=== PATIENT | male | born 1965 | race Hispanic/Latino ===

== ENCOUNTER 2017-04-18 06:30 | Day surgery (SDC) | payer OTHER ==
[2016-08-08 13:56] VITALS: BMI 27.1
[2017-04-18 07:05] VITALS: RESP 18
[2017-04-18] MEDS: Lactated Ringer's 1,000 ML IV ONE ×2 (07:11→09:30)
[2017-04-18] MEDS ORDERED: Propofol 10 mg/ml Inj (20 ML) ONE (07:15)
[2017-04-18] MEDS ORDERED: Rocuronium 10 mg/ml (5 ml) ONE (07:16)
[2017-04-18] MEDS ORDERED: Succinylcholine 200 mg/10 ml Inj IV ONE (07:16)
[2017-04-18] MEDS ORDERED: Lidocaine 4% (Laryng-O-Jet) Kit MM ONE (07:16)
[2017-04-18] MEDS ORDERED: Etomidate 20 mg/10ml Inj IV ONE (07:18)
[2017-04-18] MEDS ORDERED: Bacitracin Ointment 30 GM TUBE ONE (07:18)
[2017-04-18] MEDS ORDERED: Phenylephrine 10 mg/ml Inj ONE ×2 (07:18→07:21)
[2017-04-18] MEDS ORDERED: SENSORCAINE 0.5% W/EPINEPHRINE 50ML MDV IJ ONE (07:18)
[2017-04-18] MEDS ORDERED: Ropivacaine 0.5% 30ML IV ONE (07:25)
[2017-04-18] MEDS ORDERED: Dexamethasone 4 mg/1 ml ONE ×2 (07:28→08:39)
[2017-04-18] MEDS ORDERED: Lidocaine 4% MPF 5 ML IJ ONE (07:44)
[2017-04-18] MEDS ORDERED: Midazolam 2 MG/2 ML VIAL ONE (08:09)
[2017-04-18] MEDS: Bupivacaine-Epi 0.5%-1:200,000 PF Inj IJ ONE (08:30)
[2017-04-18] MEDS ORDERED: Desflurane Inhalation Anesthetic Liq (240 ml) ONE (08:30)
--- NOTE | 2017-04-18 10:03 | PCM.SURG1 ---
Surgeon's Initial Post Op Note - Surgeon's Notes Surgeon: Narayan Mcleod MD Clinical Nutritionist: Ramu Clayton PA-C Type of Anesthesia: General LMA Pre-Operative Diagnosis: Right shoulder rotator cuff tear Operative Findings: see op report Post-Operative Diagnosis: same as pre-op dx Operation Performed: Right shoulder revision arthroscopy, repair of rotator cuff tear Specimen/Specimens Removed: none Estimated Blood Loss: EBL {In ML}: 5 Date of Surgery/Procedure: 04/18/17 Time of Surgery/Procedure: 08:00
[2017-04-18] MEDS ORDERED: Oxycodone/Acetaminophen 5/325 mg Tab PO PRN (10:04)
[2017-04-18] MEDS ORDERED: HYDROmorphone 0.5 mg/0.5 ml ISec IVP PRN (10:23)
--- NOTE | 2017-04-18 10:29 | PCM.ANESB1 ---
Interscalene Block - Brachial Plexus Date of Procedure: 04/18/17 Anesthesiologist: Elizabeth Pre-Procedure Diagnosis: Right Rotator cuff tear Post-Procedure Diagnosis: Same Procedure Performed: Interscalene Block of Brachial Plexus Right - Procedure Interscalene Block of Brachial Plexus: This procedure was explained to the patient that it is for post-operative pain management. Consent was obtained after a thorough discussion with the patient regarding the benefits and possible complications of local anesthetic block of the Brachial Plexus at the Interscalene area. Prior to emergence, a time out was held with the circulating nurse to confirm the correct surgery and appropriate block. Under general anesthesia at conclusion of procedure at request of surgeon, the patient's head was gently rotated away from the __right_ ___operative shoulder and the anterior scalene groove was carefully palpated. The ultrasound transducer was then applied to the skin in the transverse plane and the brachial plexus was visualized lateral to the carotid artery and in between the anterior and middle scalene muscles. After identification,the anterior lateral portion of the neck was prepped with Chloraprep. At this point, a # 22 gauge Stimuplex 2 inches insulated needle was inserted into the interscalene groove and directed in a caudal and midline direction. The needle was inserted lateral to the ultrasound transducer in-plane towards the brachial plexus in a [id number] direction. Needle advancement was performed carefully under direct ultrasound visualization. Nerve stimulator was used and twitched of the affected extremity including the hand brachialis muscles, biceps and the deltoid was obtained at a current of __0.45___MA. After repeated negative aspiration,__2___cc of__2%____lidocaine w/ 1:200,000 epinepherine were injected and this was followed with ___8__cc of _ lidocaine w/ 1:200,000 epinepherine and 20 cc 0.5% ropivicaine. Under ultrasound guidance the local anesthetics were observed surrounding the roots of the brachial plexus. The patient had stable vital signs, was awoke in no apparent distress. The patient tolerated the interscalene block of the bracheal plexus well with stable vital signs and denied pain post procedure.
[2017-04-18 11:35] VITALS: BP 125/77; PULSE 92; TEMP 98.4; O2SAT 96
--- NOTE | 2017-04-18 22:28 | OP ---
PROCEDURE DATE: 04/18/2017 ATTENDING PHYSICIAN: Narayan Mcleod MD [facility] DIRECTOR: Ramu Clayton PA-C PREOPERATIVE DIAGNOSES: 1. Repeat retearing of rotator cuff. 2. Synovitis. POSTOPERATIVE DIAGNOSES: 1. Right shoulder extensive synovitis. 2. Posterior-superior and anterior labral tear. 3. Anterior capsular adhesions. 4. Full-thickness rotator cuff tear. 5. Bursitis. 6. Impingement. PROCEDURE: 1. Right shoulder arthroscopy, extensive debridement. 2. Revision, right shoulder double rotator cuff repair. 3. Subacromial decompression with acromioplasty. 4. Anterior capsular lysis of adhesions with manipulation. 5. Twenty-two modifier for pervious surgery. TYPE OF ANESTHESIA: General and interscalene block. ESTIMATED BLOOD LOSS: 10 mL. SPECIMENS: None. COMPLICATIONS: None. INDICATIONS: After failing a course of nonoperative therapy, the patient elected to undergo the above procedures. In the office the risks and possible complications of the shoulder arthroscopy were discussed in detail with the patient. These risks include, but are not limited to, continued pain, lack of motion, infection, vascular injury, and nerve injury including axillary nerve dysfunction, reflex sympathetic dystrophy, compartment syndrome, limb loss, and . The patient expressed an understanding of the risks and possible benefits of the procedure, and was also made aware of the alternatives to surgery. An informed consent was obtained, and was checked immediately preop. Procedure 1: The patient was correctly identified in the holding area and the right shoulder was marked with the surgeon's initials. The patient was transported to the operating room and placed in the supine position and exam under anesthesia was obtained. A preoperative orthopedic examination revealed a passive range of motion of 160 degrees of forward elevation, 40 degrees of external rotation, and 130 degrees of abduction. Stability examination, no instability. Procedure 2: The patient was then placed in a beach chair position utilizing the beach chair positioning device. The patient's head was stabilized and the indicated upper extremity was prepped and draped in the standard surgical fashion. The anatomic structures were outlined with a skin marker, and 1% lidocaine with epinephrine was injected into the posterior, anterior, and lateral portal areas. A #21-gauge spinal needle was placed in the glenohumeral joint from the posterior portal and 10 mL of sterile saline was injected into the glenohumeral joint. Return of fluid indicated correct needle placement into the joint. The needle was then withdrawn and a #11 blade was used to make a 1-cm incision at the posterior portal site. Next, the arthroscopic blunt trocar was inserted into the glenohumeral joint. A #21-gauge spinal needle was placed through the anterior rotator interval, and the anterior portal was made with a #11 blade after the spinal needle was withdrawn. A 7-mm cannula was then inserted after the skin incision was made and the arthroscopic probe was then used to examine the internal structures of the glenohumeral joint. With the shoulder in abducted and externally rotated position, the articular surface of the rotator cuff was visualized. The arthroscope and probe were then switched from posterior to anterior. The posterior labrum, posterior capsule, and biceps anchor reflection was then inspected with the arthroscope in the anterior portal position. Examination of the glenohumeral joint revealed: 1. Extensive synovitis. 2. Anterior capsular adhesions. 3. Posterior-superior and anterior labral tear. 4. Full-thickness supraspinatus tear and infraspinatus tear. Using the probe, the labrum was circumferentially assessed for tear. Tears were noted at anterior and posterior-superior labrum. Using the 4.0 motorized shaver and radiofrequency probe, the torn edges of the labrum were debrided until stable rim, preventing any further propagation. The radiofrequency device was introduced through the anterior portal and a radiofrequency anterior capsular rotator interval lysis of adhesions was performed. The anterior capsule was released to optimize range of motion. The radiofrequency device was used to provide hemostasis during this procedure. After the lysis of adhesions, passive range of motion measured 180 degrees of forward elevation, 60 degrees of external rotation, and 150 degrees of abduction. Excessive glenohumeral synovitis was cleared with a 4.0 mm full radius shaver. The hypertrophic, erythematous synovium was resected. Hemostasis was maintained with the radiofrequency device. At this point, the arthroscope was withdrawn from the glenohumeral joint and subacromial space was then entered using a blunt trocar. Gentle resistance sweeping against the coracoacromial ligament confirmed proper placement of the sheath and the arthroscope was inserted. A 1-cm incision was made at the inferolateral acromial area to create the lateral portal. Examination of the subacromial space revealed: 1. Full-thickness supraspinatus tear. 2. Bursitis. 3. Impingement. Visualization of the subacromial space was difficult due to excessive bursitis. A bursectomy was performed using a combination of radiofrequency device as well as a 4.0-mm full radius motorized shaver. The soft tissue on the undersurface of the acromion was debrided utilizing the 4.0-mm full radius shaver and the radiofrequency device was used for hemostasis. At this point, the coracoacromial ligament was released with the radiofrequency device and the acromial branch of the thoracoacromial artery was coagulated with the same instrument. Subacromial decompression was performed with a 4.0-mm conical yana using both the medial portal and the "cutting-block" precision acromioplasty technique from the posterior portal. The undersurface of the acromion was resected to a flat, smooth surface to allow unrestricted excursion of the rotator cuff. After adequate subacromial decompression, attention was then turned to the rotator cuff tear, which was easily visualized after adequate bursectomy had been performed. An auxiliary lateral portal was placed 2 cm posterior to the original lateral portal, after a correct "-man's angle" was determined using a transdeltoid 21 gauge spinal needle. Arthroscopic soft tissue releases were performed using an elevator at the coracohumeral ligament insertion and superior glenoid to free up the rotator cuff to provide adequate excursion to support a repair to the greater tuberosity. Next, the greater tuberosity was gently debrided with a combination of the 4.0 mm straight shaver and radiofrequency device, and the bone was denuded to a bleeding surface using the 4.0-mm yana. The lateral margin of the rotator cuff tear was debrided to a smooth and stable tendon surface using the 4.0-mm shaver. Two 4.5-mm Arthrex corkscrew suture anchors were placed with the proper "-man's angle" into the greater tuberosity, and a mattress suture from each anchor was passed through supraspinatus 10 mm medial to the torn edge. These anchors formed the medial row of the double row repair. The arm was abducted to 70 degrees, and the leading edge of the cuff was drawn to its proper insertion on the greater tuberosity. The #2 FiberWire mattress sutures were tied with standard arthroscopic knot tying techniques - Puneet knots and half hitches using a knot pusher. The remaining sutures were secured to the tuberosity with two 4.5-mm PushLock absorbable anchors, which were placed with standard technique into the lateral aspect of the greater tuberosity approximately 1 cm lateral to the medial row anchors. One suture strand from each knot was crossed to the diagonal PushLock anchor along with the suture strand from the corresponding anchor directly medial. This linking of the medial and lateral row formed a "suture bridge" rotator cuff repair. The ends of the remaining sutures were then cut. The shoulder was put through a passive ROM, and the rotator cuff repair was noted to be stable through a ROM of 130/50. No prominence of the suture knots or of rotator cuff tissue was noted to impinge during abduction and internal rotation. The subacromial space was then irrigated with sterile saline, and closure was instituted with sutures. A dressing was placed consisting of Xeroform, 4 x 4's, ABD pads, and tape. The patient was placed in a sling with an ABD pad in the axilla. The patient was then placed in a supine position and extubated without incident. The patient was transferred to the recovery room in stable condition, having tolerated the procedure well. Postoperatively, the patient will be maintained in an abduction sling, also provided with my rehab protocol, defining the restriction and sling use for 6 weeks. Followup in 6 weeks. During this procedure, I was assisted by Ramu Clayton PA-C, who assisted in positioning the patient on the operating room table as well as transferring the patient from the operating room table to the recovery room stretcher. In addition, Ramu Clayton PA-C, assisted me during the actual operative procedure by positioning the patient's extremity to allow for easier arthroscopic access to all areas of the joint. The presence of Ramu Clayton PA-C, as my operative collections assistant, was medically necessary to ensure the utmost safety of the patient in the pre, intra-, and postoperative periods. Due to the patient's previous procedure, rotator cuff repair, performed in this area, this procedure was more difficult than a standard shoulder arthroscopy. This required extra time during prepping and draping, as well as an extended operative time. Because of the added complexity of the revision nature of this procedure, the length of the case was prolonged by 50%. Narayan Mcleod MD [facility] # [id number]
== END 2017-04-18 12:45 | disposition home or self-care (01) ==
LOC: H.OPSURG 06:30
PROVIDERS: ATTEND Orthopaedic Surgery
DX: M24.111 Other articular cartilage disorders, right shoulder (principal); M75.41 Impingement syndrome of right shoulder; M75.51 Bursitis of right shoulder; M75.01 Adhesive capsulitis of right shoulder
CPT/HCPCS: 29823; 29826; 29827; C1713; J0171; J0330; J0690; J1100; J2001; J2250; J2370; J2405; J2704; J2765; J3010; J7030; J7120

== ENCOUNTER 2017-05-01 20:39 | Emergency (ER) | payer BC, OTHER ==
[2017-05-01 20:39] VITALS: BMI 27.1
[2017-05-01 20:52] VITALS: BP 129/81; PULSE 76; RESP 18; TEMP 98.9; O2SAT 99
--- NOTE | 2017-05-01 21:44 | ED PDOC ---
HPI: Skin/Bite Injury Time Seen by Provider: 05/01/17 21:15 Chief Complaint (Nursing): Wound Check Chief Complaint (Provider): redness of surgical wounds History Per: Patient Onset/Duration Of Symptoms: Days (1), Gradual, Persistent Location Of Injury: Right: Shoulder Quality Of Symptoms: Painful, Swollen Additional Complaint(s): Constant warm swelling and pain to RIGHT shoulder localized to suture sites of recent shoulder surgery (04/18) by Dr Mcleod. Pt reports that he had no similar pain after the surgery. Last seen by Dr Mcleod Monday for follow up but did not have redness or swelling at that time. No fever. No purulent discharge. No numbness or weakness. PMD Dr Cardona Ortho Dr Mcleod Past Medical History Reviewed: Historical Data, Nursing Documentation, Vital Signs Vital Signs: Last Vital Signs Temp 98.9 F 05/01/17 20:47 Pulse 76 05/01/17 20:47 Resp 18 05/01/17 20:47 BP 129/81 05/01/17 20:47 Pulse Ox 99 05/01/17 21:51 - Medical History PMH: Fractures (LEFT ANKLE FX WITH I AND D AND ORIF) Denies: Depression, Chronic Kidney Disease - Surgical History Surgical History: Denies: Pacemaker - Family History Family History: States: No Known Family Hx - Social History Current smoker - smoking cessation education provided: No - Home Medications Home Medications: Ambulatory Orders Medication Instructions Recorded Multivitamin 1 tab PO DAILY 06/20/13 Docusate [Colace] 100 mg PO DAILY PRN 04/18/17 Ondansetron HCl [Zofran] 8 mg PO DAILY PRN 04/18/17 Oxycodone HCl/Acetaminophen 1 tab PO Q4 PRN 04/18/17 [Oxycodone-Acetaminophen 5-325] Cephalexin [cephalexin] 500 mg PO Q6 #28 cap 05/01/17 - Allergies Allergies/Adverse Reactions: Allergies Allergy/AdvReac Type Severity Reaction Status Date / Time No Known Allergies Allergy Verified 05/22/13 13:18 Review of Systems Constitutional: Negative for: Fever, Chills Musculoskeletal: Positive for: Shoulder Pain Skin: Positive for: Rash, Lesions Neurological: Negative for: Weakness, Numbness Physical Exam - Reviewed Nursing Documentation Reviewed: Yes Vital Signs Reviewed: Yes - Physical Exam Appears: Positive for: Non-toxic, In Acute Distress (mild painful distres) Head Exam: Positive for: ATRAUMATIC, NORMOCEPHALIC Skin: Positive for: Warm, Dry Neck: Positive for: Painless ROM, Supple Extremity: Positive for: Other (RIGHT shoulder: 4 surgical sites with sutures in place and blandching warm erythema surrounding each of them and mild ttp and no fluctuance; RUE in shoulder immobilizer, distally neurovascularly intact and in hand) Lymphatic: Negative for: Adenopathy Neurologic/Psych: Positive for: Alert. Negative for: Motor/Sensory Deficits - Laboratory Results Result Diagrams: 05/01/17 22:15 05/01/17 22:30 - ECG O2 Sat by Pulse Oximetry: 99 - Physician Consult Information Physician Contacted: Narayan Mcloed Outcome Of Conversation: Recommends suture removal, antibiotics, f/u tomorrow in office. Medical Decision Making Medical Decision Making: Surgical wounds cleaned with betadyne and 4 sutures removed without difficulty. Disposition - Clinical Impression Clinical Impression: Wound infection after surgery Counseled Patient/Family Regarding: Studies Performed, Diagnosis, Need For Followup, Rx Given - Disposition Referrals: Narayan Mcleod MD [Staff Provider] - 05/02/17 Disposition: Routine/Home Disposition Time: 23:00 Condition: STABLE Prescriptions: Cephalexin [cephalexin] 500 mg PO Q6 #28 cap Instructions: Surgical Site Infections (ED) Forms: [facility] (Hungarian)
[2017-05-01 22:22] LABS: BASO % 0.5 % (0.0-2.0); EOS # 2.2 K/uL (0.0-0.7); HEMATOCRIT 43.7 % (35.0-51.0); LYMPH % 19.4 % (20.0-40.0); MEAN CELL VOLUME 92.4 fl (80.0-94.0); MEAN CORPUSCULAR HGB CONC 33.5 g/dL (33.0-37.0); MONO # 1.1 K/uL (0.0-0.8); NEUT # 4.8 K/uL (1.8-7.0); NEUT % 47.1 % (50.0-75.0); NRBC % 0.1 % (0.0-0.0); PLATELET COUNT 230 K/uL (130-400); RED CELL DISTRIBUTION WIDTH 13.9 % (11.5-14.5); WHITE BLOOD COUNT 10.2 K/uL (4.8-10.8)
[2017-05-01 22:58] LABS: ALB/GLOB RATIO 1.3 (1.0-2.1); ALKALINE PHOSPHATASE 71 U/L (38-126); ALT/SGPT 19 U/L (21-72); AST/SGOT 93 U/L (17-59); BILIRUBIN,TOTAL 1.7 mg/dl (0.2-1.3); BLOOD UREA NITROGEN 15 mg/dl (9-20); CALCIUM 8.9 mg/dL (8.4-10.2); CARBON DIOXIDE 26 mmol/L (22-30); CHLORIDE 103 mmol/L (98-107); GFR AFRICAN-AMERICAN > 60; GLUCOSE,RANDOM 80 mg/dL (75-110); SODIUM 138 mmol/l (132-148); TOTAL PROTEIN 7.3 G/DL (6.3-8.2)
[2017-05-01 22:59] LABS: POTASSIUM 6.1 MMOL/L (3.6-5.0)
[2017-05-01] MEDS ORDERED: cefTRIAXone (Rocephin) 1 gm Inj ONE (23:10)
[2017-05-01 23:12] LABS: EOSINOPHIL 20 % (0-7); NEUTROPHIL 47 % (42-75); TOTAL CELLS COUNTED 100
[2017-05-01 23:13] LABS: LARGE PLATELETS PRESENT
== END 2017-05-02 00:06 | disposition home or self-care (01) ==
LOC: H.ER 20:39
DX: T81.4XXA Infection following a procedure, initial encounter (principal); B99.8 Other infectious disease; Y83.8 Other surgical procedures as the cause of abnormal reaction of the patient, or of later complication, without mention of misadventure at the time of the procedure; Y92.89 Other specified places as the place of occurrence of the external cause
CPT/HCPCS: 80053; 83605; 85025; 87040; 99282; J0696